=== PATIENT | female | born 1955 | race Caucasian/White ===

== ENCOUNTER → 2020-09-19 | Outpatient (CLI) | payer MEDICARE, OTHER | LOC: EXRD 09-18 11:30 → KOH-I 09-18 11:30 | DX: M85.80 Other specified disorders of bone density and structure, unspecified site (principal); M81.0 Age-related osteoporosis without current pathological fracture; N95.1 Menopausal and female climacteric states | CPT/HCPCS: 77080 ==

== ENCOUNTER → 2020-10-03 | Outpatient (CLI) | payer MEDICARE, OTHER | LOC: KOH-I 15:03 | DX: M25.562 Pain in left knee (principal); S83.222A Peripheral tear of medial meniscus, current injury, left knee, initial encounter; M85.661 Other cyst of bone, right lower leg | CPT/HCPCS: 73721 ==

== ENCOUNTER → 2021-05-27 | Outpatient (CLI) | payer MEDICARE, OTHER ==
[~2021-05-27] MED LIST: ALLERGY RELIEF5 MG PO; BACTRIM DS TAB1 EACH PO; CHLORTHALIDONE25 MG PO; FENOFIBRATE160 MG PO; LEVOTHYROXINE175 MCG PO; LIPITOR TAB 2020 MG PO; NORVASC5 MG PO; PEPCID40 MG PO; PROTONIX 40 MG40 M1 PO; QUINAPRIL HCL40 MG PO; RELAFEN750 MG PO; VITAMIN D21250 MCG PO
[2021-05-27 10:13] LABS: HEMOGLOBIN 11.4 gm/dl (12.3-15.3); RED BLOOD COUNT 3.89 M/UL (4.00-5.10); WHITE BLOOD COUNT 5.9 K/UL (4.5-11.0)
[2021-05-27 10:34] LABS: BUN/CREATININE RATIO 13 (0-10)
== END ==
LOC: OPSV2 08:57 → EDSTATUS 09:00 → OPSV2 09:00
PROVIDERS: Orthopaedic Surgery
DX: Z01.818 Encounter for other preprocedural examination (principal); M17.12 Unilateral primary osteoarthritis, left knee; I10 Essential (primary) hypertension; R06.02 Shortness of breath
CPT/HCPCS: 71046; 80048; 85027; 93005